=== PATIENT | female | born 1960 | race Caucasian/White ===

== ENCOUNTER 2018-12-18 09:06 | Inpatient (IN) | payer OTHER, MEDICAID ==
[2018-12-18] VITALS (239 sets, daily range): BP systolic 83–145; BP diastolic 57–106; PULSE 71–87; TEMP 98.2–98.8; O2SAT 83–100
[~2018-12-18] VITALS: Ht 162.6 cm; Wt 74.0 kg
[~2018-12-18 09:06] MED LIST: 00186-0372-20 IH; ACIDOPHILUS PO; ALBUTEROL SULFAT3 M3 IH; ALBUTEROL SULFAT8 MG; ASPIRIN 81M81 MG/TA2 PO; BEE POLLEN500 M2 PO; BEPREVE15 MG/ML OU; BUSPAR DIVIDOSE15 MG PO; CLARITIN 1010 MG/TAB PO; COREG 25MG25 MG/TAB PO; COREG12.5 MG PO; COREG25 MG PO; CYMBALTA 60MG60 MG PO; DALIRESP500 MCG PO; DOXYCYCLINE 10100 MG PO; DUO-KAPS1 CAP PO; ESTRATEST HS; FLEXERIL 1010 MG/TAB PO; FLONASE NASAL S16 GM NS; GINSENG PO; GLUCOSAMINE S1000 MG PO; GLUCOSAMINE500 MG PO; IMDUR 30MG30 MG/TAB PO; IRON TABLETS325 MG PO; LEVAQUIN 5500 MG/TA1 PO; LUTEIN20 MG PO; LYRICA50 MG PO; MAGIC MOUTH PO; METHADONE5 MG PO; MG-200200 MG PO; MILK THISTLE1 POW; MUCINEX 60600 MG/TA1 PO; NAPROXEN EC500 MG PO; NEURONTIN100 MG/CAP PO; NEURONTIN300 MG PO; NEURONTIN600 MG/TAB PO; NEXIUM 40MG40 MG PO; NEXIUM40 MG PO; NICODERM C14 MG/PATC TOP; NITROSTAT0.4 MG/TAB SL; NORCO 325 MG-101 TAB; NORCO 325 MG-101 TAB PO; OLIVE LEAF EXT500 MG PO; OMEGA 31000 MG PO; OXYCONTIN30 MG PO; OXYGEN; PLAVIX 75MG TAB75 MG PO; PRAVACHOL 40MG40 MG PO; PREDNISONE10 MG PO; PREDNISONE20 MG PO; PREMARIN 0.60.625 MG PO; PRINIVIL5 MG PO; SINGULAIR 110 MG/TAB PO; SINGULAIR10 MG PO; SPIRIVA RE2.5 MCG/Ac IH; SPIRIVA18 MCG IH; SUPER B COMPLEX1 TA2 PO; SYMBICORT1 AE2 IH; TAGAMET PO; TOPROL XL25 MG PO; TYLENOL #3 301 UDTAB PO; VALIUM 5MG T5 MG/TAB PO; VALIUM5 MG PO; VERAMYST27.5 MCG/A NS; VITAMIN D 400400 IU PO; VITAMIN D1000 IU PO; VITAMIN D50000 IU PO; VITAMIN E1000 U/CAP PO; XOPENEX 1.1.25 MG/3 IH; XOPENEX0.63 MG/3 IH; ZANTAC 150MG T150 MG PO; ZINC10 MG PO; ZOLOFT 50MG50 MG PO; [UNRECOGNIZED DRUG - CODE] PO; [UNRECOGNIZED DRUG - OTHER]; [UNRECOGNIZED DRUG - OTHER] PO; [UNRECOGNIZED DRUG - OTHER] PO; [UNRECOGNIZED DRUG - OTHER] PO
[2018-12-18] MEDS ORDERED: PREDNISONE10 MG PO (09:17)
[2018-12-18] MEDS ORDERED: RT ADVAIR HFA 2312 G IH (09:24)
--- NOTE | 2018-12-18 10:05 | NUR ---
pt to ct per ambulation. Pt placed supine on ct table. Monitors applied and O2 on at 2l/nc.
--- NOTE | 2018-12-18 10:20 | NUR ---
Dr Gonzales into room and talks with pt. regarding procedure. Pt inform she will potentially get a pneumonthorax due to lung conditions.
--- NOTE | 2018-12-18 10:40 | NUR ---
Specimen obtained by Dr Gonzales and placed in formalin. Specimen labeled.
--- NOTE | 2018-12-18 10:45 | NUR ---
Dr Gonzales informs pt she has a pneumothorax.
--- NOTE | 2018-12-18 10:50 | NUR ---
pt reports she is feeling ok slight pain to right side of chest. Pt reports breathing is getting worse.
--- NOTE | 2018-12-18 10:53 | NUR ---
pt gave verbal consent to place chest tube. Verified with [facility] locomotive electrician.
--- NOTE | 2018-12-18 11:02 | NUR ---
pt reports breathing is getting more difficult on right side. O2 sats decreased to 93% O2 increased to 4l/nc. O2 sats increased to 95%
--- NOTE | 2018-12-18 11:07 | NUR ---
Dr Gonzales evacuates are from right lung following chest tube placement. Pt states breathing is getting easier. O2 sats increased to 98% on 4l/nc. scouring pads supervisor notified of needed room. Dr Gonzales to call Dr Arroyo regarding admission.
--- NOTE | 2018-12-18 14:00 | NUR ---
Patient alert and oriented, answers questions appropriately. See assessment. Chest tube in place to right chest wall to dependent drainage. Small amount of bloody drainage noted in pleurex drain. Lungs with normal breath sounds on left, scattered wheezes noted to right upper and lower lung lobes. Oxygen at 4l/nc. No c/o at this time.
[2018-12-18] MEDS ORDERED: ASPIRIN 81M81 MG/TA2 PO (14:17)
--- NOTE | 2018-12-18 16:45 | NUR ---
Patient c/o sudden increase in pressure and swelling to area around chest tube. Wheezes noted RUL, RLL. Area firm, no crepitus noted. Dr Arroyo notified.
--- NOTE | 2018-12-18 17:00 | NUR ---
Dr Gonzales here to see patient, readjusts chest tube. Requests that nurse monitor chest tube so that holes on chest tube are under the skin. Requested from Dr Gonzales if he would like another CXR ordered after adjustment, declined CXR at this time and request CXR in AM.
--- NOTE | 2018-12-18 18:25 | NUR ---
Patient again c/o increased pressure and swelling to right chest, increase in size noted. Continues with wheezes in RLL, RUL. DEVON Castillo notified. CXR ordered. Dr Arroyo here to see patient.
--- NOTE | 2018-12-18 19:58 | NUR ---
Patient arrived to the unit via stretcher. Able to self-transfer to ICU bed. Patient's right side of chest noted to be visibly bulging out compared to left side. Swelling slightly firm to touch. Patient denies any shortness of air; currently on 4L NC.
--- NOTE | 2018-12-18 20:20 | NUR ---
Dr. Almazan at bedside to change Heimlich drain to an atrium drain. Assisted with procedure. Suction not working properly at 20 mmhg; set to [address] Almazan. Tubing checked for any leakage or concerns; suction working properly. Dr. Miller also present; also verifed set was working properly. Will continue to monitor.
[2018-12-18 21:42] LABS: BASO % 0.4 % (0.0-2.0); EOS % 0.1 % (0-4.0); GRAN # 9.2 (1.4-6.5); GRAN % 80.6 % (42.2-75.2); LYMPH # 1.4 (1.2-3.4); LYMPH % 12.3 % (20.0-51.0); MEAN CELL VOLUME 96 fl (80.0-100.0); MEAN CORPUSCULAR HEMOGLOBIN 31 pg (27.0-31.0); MEAN CORPUSCULAR HGB CONC 33 g/dl (33.0-37.0); MEAN PLATELET VOLUME 10.1 fl (7.4-10.4); MONO # 0.7 (0.1-0.6); MONO % 6.1 % (1.7-9.3); PLATELET COUNT 284 K/mm3 (130-400); RED BLOOD COUNT 3.86 M/mm3 (4.10-5.30); REDCELL DISTRIBUTION WIDTH-CV 14.6 % (11.5-14.5)
[2018-12-18 21:45] LABS: INR 1.1 (0.8-3.0); PROTHROMBIN TIME 12.2 SECONDS (9.7-12.8)
[2018-12-18 21:48] LABS: HEMATOCRIT 36.9 % (37.0-47.0)
[2018-12-18 21:55] LABS: ALBUMIN 3.6 gm/dL (3.5-5.0); BILIRUBIN,TOTAL 0.3 mg/dL (0.0-1.0); CALCIUM 9.3 mg/dL (8.4-10.2); CREATININE, serum 0.75 mg/dL (0.52-1.25); MAGNESIUM 1.9 mg/dL (1.6-2.3); POTASSIUM 4.7 mmol/L (3.4-5.0); TOTAL PROTEIN 6.9 gm/dL (6.4-8.2)
--- NOTE | 2018-12-18 23:45 | NUR ---
Crepitus noted around chest tube site. Some tenderness with palpation. Hospitalist notified. No concerns at this time per hospitalist as respiratory status is stable and chest tube functioning.
[2018-12-19] VITALS (813 sets, daily range): BP systolic 113–163; BP diastolic 76–107; PULSE 68–96; TEMP 97.7–98; O2SAT 40–100
--- NOTE | 2018-12-19 01:45 | NUR ---
Chest tube site and drainage system checked; no concerns at this time.
--- NOTE | 2018-12-19 05:00 | NUR ---
Patient denies any concerns at this time. Will continue to monitor.
[2018-12-19 05:39] LABS: BASO % 0.1 % (0.0-2.0); GRAN # 6.7 (1.4-6.5); GRAN % 85.5 % (42.2-75.2); HEMATOCRIT 38.4 % (37.0-47.0); HEMOGLOBIN 12.1 g/dl (12.5-16.0); LYMPH # 0.9 (1.2-3.4); LYMPH % 11.9 % (20.0-51.0); MEAN CELL VOLUME 97 fl (80.0-100.0); MEAN CORPUSCULAR HEMOGLOBIN 31 pg (27.0-31.0); MEAN CORPUSCULAR HGB CONC 32 g/dl (33.0-37.0); MEAN PLATELET VOLUME 9.8 fl (7.4-10.4); MONO # 0.2 (0.1-0.6); PLATELET COUNT 296 K/mm3 (130-400); RED BLOOD COUNT 3.97 M/mm3 (4.10-5.30); REDCELL DISTRIBUTION WIDTH-CV 14.3 % (11.5-14.5)
[2018-12-19 05:49] LABS: CALCIUM 8.8 mg/dL (8.4-10.2); CREATININE, serum 0.57 mg/dL (0.52-1.25); POTASSIUM 4.5 mmol/L (3.4-5.0)
[2018-12-19] MEDS ORDERED: NATURE'S BLEND160 MG (05:49)
--- NOTE | 2018-12-19 07:00 | NUR ---
Bedside report received from DOMITILA Crenshaw. Patient currently sleeping in bed with no complaints. chest tube site evaluated. currently to 30 cm suction. no drainage seen in tubing. will continue to monitor.
--- NOTE | 2018-12-19 11:18 | NUR ---
EZE met with the patient and patient's life partner, Johann, to discuss discharge plan. The patient lives in [place] with her life partner. She reports independence with ADLs, has a walker, and home oxygen through [employer]. The patient's PCP is Dr. Audrey Trivedi and she receives her medications from the [facility]. She reports no difficulties obtaining her meds. The patient does not have advanced directives in EMR, but she states that she does have a copy and that [facility] should have a copy. EZE contacted and requested a copy from [facility]. The patient plans to return home with her life partner upon discharge. No identified needs at this time, but SW to continue to follow.
--- NOTE | 2018-12-19 13:17 | NUR ---
EZE received the patient's DPOA-HC, via fax, from [facility]. EZE placed a copy in the patient's chart and also provided a copy to the patient. The patient then reported that she needed to get a copy of her insurance cards to her oxygen company, [employer], but is unable to do so since she is in the hospital. The patient asked if EZE could send those to [facility]. EZE then contacted and faxed a copy of the patient's insurance cards to Lisa at [facility]. No additional needs at this time.
--- NOTE | 2018-12-19 14:59 | NUR ---
Initial visit; Patient and her and a friend welcomed Data Warehousing Architect visit. Data Warehousing Architect offered encouragement and empathy along with keeping patient in her prayers.
--- NOTE | 2018-12-19 15:15 | NUR ---
Patient taken to Surgical room 350. She is able to ambulate from wheelchair to bed with no issue. Chest tube reviewed with DOMITILA Rascon. Report given to Tarah prior to us coming up to room. Care turned over at this time.
--- NOTE | 2018-12-19 15:15 | NUR ---
PATIENT TRANSFERED FROM ICU INTO ROOM 350. RIGHT CHEST TUBE TO 30 OF CONTINUOUS SUCTION. A&P UPPER LUNG COPELAND NOTED FINE CRACKLES. PATIENT HAS HX OF SMOKING. RIGHT LUNG BASE IS DEMINISHED. NOTED OCCATIONAL EXP WHEEZE. O2 AT 2L PER NC WITH SATS IN MID 90'S. PATIENT DENIES SOB OR CHEST PAIN. CHEST TUBE DRESSING IS CD&I WITH OCCLUSIVE TAPE. HEAD TO TOE ASSESSMENT COMPLETE. AHA DIET. NO COMPLAINTS. LEFT WRIST IV AND RIGHT FORARM IV BOTH TO INT. FAMILY AT BEDSIDE. ORIENTED TO ROOM. CALL LIGHT IN REACH.
--- NOTE | 2018-12-19 20:00 | NUR ---
Patient assisted to bathroom, mild shortness of breath noted with activity. Has a right anterior chest tube to suction, no drainage to record in collection container. Back to bed, oxygen on at 3L/NC. Dressing to rt chest tube secure, has subcutaneous emphysema around chest tube up into right neck, this has been present since arrival to floor. Lungs with expiratory wheezes throughout. Has SL to right and left forearm, both flush easily without redness or swelling. Patient denies pain to chest tube site, has chronic back pain. Is alert and oriented x4.
[2018-12-20 00:55] VITALS: BP 133/93; PULSE 87; TEMP 97.8
[2018-12-20 04:44] VITALS: BP 132/82; PULSE 72; TEMP 98
--- NOTE | 2018-12-20 04:58 | NUR ---
PT REFUSED RT NEBULIZER TX AT THIS TIME.
--- NOTE | 2018-12-20 06:00 | NUR ---
No drainage from chest tube, remains to 20cm suction.
[2018-12-20 07:37] VITALS: BP 145/96; PULSE 73; TEMP 97.1
--- NOTE | 2018-12-20 09:17 | NUR ---
Pt continues to rest in bed. She is A/Ox4. She states she is having 5/10 chronic back pain, requested PRN norco which was given. Saline locks to right FA and left FA are free of complicaitons. Chest tube to suction. to right upper chest is free of complications, small amount of crepitis noted. No drainage noted. Pt denies any other needs.
--- NOTE | 2018-12-20 10:27 | NUR ---
Pt is sitting up in bed, working on computer. Sign. other is at bedside. Pt reports norco was effective, denies any needs.
--- NOTE | 2018-12-20 11:04 | NUR ---
Visited, listened, and prayed with the patient.
[2018-12-20 11:46] VITALS: BP 149/88; PULSE 87; TEMP 97
--- NOTE | 2018-12-20 12:26 | NUR ---
Pt denies pain at this time. States she is going to try and sleep because she did not sleep well last night.
--- NOTE | 2018-12-20 15:16 | NUR ---
Pt is sitting up in bed eating lunch. She continues to deny needs.
[2018-12-20 15:49] VITALS: BP 121/75; PULSE 89; TEMP 98.1
--- NOTE | 2018-12-20 17:05 | NUR ---
Pt has had an overall uneventful shift. Suction remains to 30 cm. No drainage to tube. Pt remains on 3L O2 per NC. She continues to deny any needs. Sign. other at bedside.
[2018-12-20 21:25] VITALS: BP 126/82; PULSE 80; TEMP 97.6
--- NOTE | 2018-12-20 22:05 | NUR ---
pt resting in bed A+Ox4. no pain. SOA on exerition. left lung sounds diminished, right side fine crackles. no needs at this time. call light in reach. shift assessment complete.
--- NOTE | 2018-12-20 23:45 | NUR ---
PT CHEST TUBE HAS NO DDRAINAGE DURING NIGHT. SUCTION AT 30 CM. PT AMBULATING WELL. NO PAIN. SLEEPING, NO NEEDS AT THIS TIME. CALL LIGHT IN REACH.
[2018-12-21 00:44] VITALS: BP 137/90; PULSE 72; TEMP 97.8
--- NOTE | 2018-12-21 04:39 | NUR ---
pt chest tube stopped producing bubbles- charge and house notified. will continue to monitor. pt denies needs at this time
[2018-12-21 05:08] VITALS: BP 129/81; PULSE 72; TEMP 97.7
--- NOTE | 2018-12-21 05:29 | NUR ---
PT WANTED TO SLEEP NOT RT TX GIVEN AT THIS TIME.
--- NOTE | 2018-12-21 06:10 | NUR ---
pt had an uneventful night. no pain- slight tenderness at chest tube site. chest tube- bubbles stopped, charge and house notified. ICU nurse came and applied tubing directly to suction. bubbles noted currently. no soa. no needs at this time. call light in reach.
[2018-12-21 06:16] LABS: BASO % 0.1 % (0.0-2.0); GRAN % 83.5 % (42.2-75.2); HEMATOCRIT 38.2 % (37.0-47.0); HEMOGLOBIN 12.4 g/dl (12.5-16.0); LYMPH # 1.1 (1.2-3.4); LYMPH % 11.6 % (20.0-51.0); MEAN CELL VOLUME 95 fl (80.0-100.0); MEAN CORPUSCULAR HEMOGLOBIN 31 pg (27.0-31.0); MEAN CORPUSCULAR HGB CONC 33 g/dl (33.0-37.0); MONO # 0.4 (0.1-0.6); MONO % 4.4 % (1.7-9.3); PLATELET COUNT 294 K/mm3 (130-400); RED BLOOD COUNT 4.02 M/mm3 (4.10-5.30); REDCELL DISTRIBUTION WIDTH-CV 14.4 % (11.5-14.5)
[2018-12-21 06:27] LABS: ALBUMIN 3.3 gm/dL (3.5-5.0); BILIRUBIN,TOTAL 0.3 mg/dL (0.0-1.0); CALCIUM 9.1 mg/dL (8.4-10.2); CREATININE, serum 0.64 mg/dL (0.52-1.25); POTASSIUM 4.5 mmol/L (3.4-5.0); TOTAL PROTEIN 6.4 gm/dL (6.4-8.2)
--- NOTE | 2018-12-21 07:18 | NUR ---
report given to DOMITILA Gomez. pt reports no needs
[2018-12-21 07:51] VITALS: BP 142/92; PULSE 75; TEMP 97.6
--- NOTE | 2018-12-21 08:00 | NUR ---
Patient is resting comfortably. Her chest tube is to 30cm of suction as ordered. She has redness and crepitus at her insertion site. She stated it is a little tender. Oxygen on at 3l/min per NC. Denies nausea at this time. Stated having some pain but is not bad at this time. She is wanting to rest at this time because she was not able to sleep much last night. No other changes at this time. Call light within reach.
[2018-12-21 11:55] VITALS: BP 140/91; PULSE 73; TEMP 97.5
[2018-12-21 16:04] VITALS: BP 127/77; PULSE 89; TEMP 97.8
--- NOTE | 2018-12-21 18:00 | NUR ---
Patient has been doing well today. Timpson given once this am for pain and she has not wanted any since. New IV started this afternoon, her previou IV's were outdated. No drainage from chest tube. Dr Kolb turned the suction down to 20cm. Patient continues to be on 3l/O2 per NC. No other changes at this time. Call light within reach.
[2018-12-21 20:53] VITALS: BP 121/87; PULSE 89; TEMP 97.6
[2018-12-22 04:43] VITALS: BP 117/80; PULSE 74; TEMP 97
--- NOTE | 2018-12-22 06:23 | NUR ---
RESTING QUIETLY. NO N/V. NO DYSPNEA AT REST. NORCO FOR PAIN. CHEST TUBE TO RT CHEST WITHOUT LEAKAGE. NOTABLE BILAT. EXP. WHEEZE.
[2018-12-22 06:34] LABS: BASO % 0.1 % (0.0-2.0); GRAN # 7.6 (1.4-6.5); GRAN % 74.3 % (42.2-75.2); HEMATOCRIT 42.1 % (37.0-47.0); HEMOGLOBIN 13.5 g/dl (12.5-16.0); LYMPH # 1.5 (1.2-3.4); LYMPH % 14.3 % (20.0-51.0); MEAN CELL VOLUME 94 fl (80.0-100.0); MEAN CORPUSCULAR HEMOGLOBIN 30 pg (27.0-31.0); MEAN CORPUSCULAR HGB CONC 32 g/dl (33.0-37.0); MEAN PLATELET VOLUME 9.8 fl (7.4-10.4); MONO # 1.1 (0.1-0.6); MONO % 10.4 % (1.7-9.3); PLATELET COUNT 310 K/mm3 (130-400); RED BLOOD COUNT 4.46 M/mm3 (4.10-5.30); REDCELL DISTRIBUTION WIDTH-CV 14.3 % (11.5-14.5)
[2018-12-22 06:45] LABS: CALCIUM 9.3 mg/dL (8.4-10.2); CREATININE, serum 0.72 mg/dL (0.52-1.25); POTASSIUM 4.5 mmol/L (3.4-5.0)
[2018-12-22 08:40] VITALS: BP 127/90; PULSE 85; TEMP 97.7
--- NOTE | 2018-12-22 10:30 | NUR ---
Patient alert and oriented, answers questions appropriately. See assessment. Chest tube to right upper chest to suction, dressing CDI. No c/o SOA. Scattered wheezes noted throughout all lung mendez. No other c/o at this time.
--- NOTE | 2018-12-22 11:18 | NUR ---
Dr Yoo here to see patient. Chest tube to water seal.
--- NOTE | 2018-12-22 11:24 | NUR ---
Follow-up visit; Lara hopeful about being discharged today. Senior Research Project Manager wished her well and God's blessings.
[2018-12-22 12:06] VITALS: BP 127/83; PULSE 77; TEMP 97.3
[2018-12-22 17:12] VITALS: BP 114/86; PULSE 96; TEMP 97.9
[2018-12-22 20:00] VITALS: BP 118/84; PULSE 92; TEMP 98.1
--- NOTE | 2018-12-22 22:00 | NUR ---
Assessment complete see flow sheet. Denies any questions or concerns at this time. HS meds given. States she has no pain but feels exhausted. Plan of care discussed for shift and possible discharge in AM. Verbalizes understanding and denies questions or concerns. Will continue to monitor.
[2018-12-23 00:41] VITALS: BP 102/72; PULSE 94; TEMP 97.1
--- NOTE | 2018-12-23 02:20 | NUR ---
PT REFUSED TX AT THIS TIME, SHE WOULD LIKE TO SLEEP.
[2018-12-23 04:25] VITALS: BP 125/90; PULSE 91; TEMP 97.4
--- NOTE | 2018-12-23 05:00 | NUR ---
Rested most of the night with no c/o. Denied any need for pain medications. Encouraged to call for questions or concerns. Will continue to monitor.
[2018-12-23 07:57] VITALS: BP 100/78; PULSE 92; TEMP 98
[2018-12-23] MEDS ORDERED: PREDNISONE10 MG PO (09:28)
[2018-12-23 11:19] VITALS: BP 97/59; PULSE 81; TEMP 97.6
--- NOTE | 2018-12-23 12:05 | NUR ---
SW attended clinical rounding. Patient will dc home today. Nurse reports she is independent in room. No discharge needs identified.
--- NOTE | 2018-12-23 13:29 | NUR ---
PATIENT DISCHARGING HOME VIA WHEELCHAIR TO PERSONAL VEHICLE WITH . GAVE DISCHARGE INSTRUCTIONS AND FOLLOW UP APTS. ANSWERED ALL QUESTIONS/CONERNS. STUDENT NURSE DC'D IV. PATIENT DISCHARGED WITH PERSONAL BELONGINGS.
== END 2018-12-23 13:30 | disposition home or self-care (01) | DRG 201 ==
LOC: COL.RAD 09:06 → SURG 12:00 → ICU 20:00 → SURG 12-19 15:11 → ICU 12-19 15:11 → SURG 12-19 15:11
PROVIDERS: Family Medicine; Internal Medicine; ADMIT Internal Medicine Pulmonary Disease
PROC: 0BBD3ZX Excision of Right Middle Lung Lobe, Percutaneous Approach, Diagnostic (ICD-10-PCS; principal; 2018-12-18)
PROC: 0W9930Z Drainage of Right Pleural Cavity with Drainage Device, Percutaneous Approach (ICD-10-PCS; 2018-12-18)
DX: J95.811 Postprocedural pneumothorax (principal); R91.8 Other nonspecific abnormal finding of lung field; I10 Essential (primary) hypertension; J44.9 Chronic obstructive pulmonary disease, unspecified; I25.10 Atherosclerotic heart disease of native coronary artery without angina pectoris; F17.210 Nicotine dependence, cigarettes, uncomplicated; Z95.1 Presence of aortocoronary bypass graft; Z86.73 Personal history of transient ischemic attack (TIA), and cerebral infarction without residual deficits; Z79.01 Long term (current) use of anticoagulants; J01.90 Acute sinusitis, unspecified; G89.21 Chronic pain due to trauma; T81.82XA Emphysema (subcutaneous) resulting from a procedure, initial encounter; I95.9 Hypotension, unspecified; G47.34 Idiopathic sleep related nonobstructive alveolar hypoventilation
CPT/HCPCS: 99233-AI; 99239; A7048; J1650; J2250; J2920; J7030; J7120; J7512

== ENCOUNTER → 2019-04-23 | Outpatient (CLI) | payer OTHER, MEDICAID ==
[~2019-04-23] MED LIST changes: +NATURE'S BLEND160 MG; +RT ADVAIR HFA 2312 G IH
== END ==
LOC: COL.RAD 08:08
DX: C34.2 Malignant neoplasm of middle lobe, bronchus or lung (principal)
CPT/HCPCS: A9585

== ENCOUNTER → 2019-05-08 | Outpatient (CLI) | payer OTHER, MEDICAID | LOC: COL.RAD 08:03 | DX: M51.36 Other intervertebral disc degeneration, lumbar region (principal); M48.02 Spinal stenosis, cervical region; M43.22 Fusion of spine, cervical region; M47.813 Spondylosis without myelopathy or radiculopathy, cervicothoracic region; M48.07 Spinal stenosis, lumbosacral region; M43.16 Spondylolisthesis, lumbar region | CPT/HCPCS: A9585 ==

== ENCOUNTER 2019-07-26 17:30 | Inpatient (IN) | payer OTHER, MEDICAID ==
[~2019-07-26] VITALS: Ht 152.4 cm; Wt 77.4 kg
[2019-07-26] MEDS ORDERED: PROTONIX 40MG T40 MG PO (18:21)
[2019-07-26 18:29] LABS: HEMOGLOBIN 11.3 g/dl (12.5-16.0); MEAN CELL VOLUME 99 fl (80.0-100.0); MEAN CORPUSCULAR HEMOGLOBIN 32 pg (27.0-31.0); MEAN CORPUSCULAR HGB CONC 33 g/dl (33.0-37.0); MEAN PLATELET VOLUME 9.4 fl (7.4-10.4); PLATELET COUNT 238 K/mm3 (130-400); RED BLOOD COUNT 3.52 M/mm3 (4.10-5.30); REDCELL DISTRIBUTION WIDTH-CV 19.9 % (11.5-14.5)
[2019-07-26 18:33] LABS: HEMATOCRIT 34.7 % (37.0-47.0)
[2019-07-26 18:35] LABS: ALBUMIN 4.3 gm/dL (3.5-5.0); BILIRUBIN,TOTAL 0.5 mg/dL (0.0-1.0); CALCIUM 9.1 mg/dL (8.4-10.2); CREATININE, serum 0.7 (0.52-1.25); POTASSIUM 4.4 mmol/L (3.4-5.0); TOTAL PROTEIN 7.5 gm/dL (6.4-8.2)
[2019-07-26 19:43] LABS: COLLECTION METHOD CLEAN CATCH
[2019-07-26 20:12] LABS: MUCOUS Present /lpf; PH 6 (5-8); SQUAMOUS EPITHELIAL 0-2 /hpf; URINE APPEARANCE Clear; URINE BACTERIA None Seen /hpf; URINE BILIRUBIN Negative (NEGATIVE); URINE BLOOD 1+ (NEGATIVE); URINE COLOR Yellow; URINE GLUCOSE Negative (NEGATIVE); URINE KETONE Negative (NEGATIVE); URINE LEUKOCYTE ESTERASE Negative (NEGATIVE); URINE NITRATE Negative (NEGATIVE); URINE PROTEIN(semi-quant) Negative (NEGATIVE); URINE RBC 20-50 /hpf; URINE UROBILINOGEN >=4.0 mg/dL (NEGATIVE)
[2019-07-26 20:19] LABS: ANISOCYTOSIS 2+; BAND 3 % (0-10); BASOPHIL 1 % (0-2); EOSINOPHIL 2 % (0-4); LYMPHOCYTE 28 % (20.0-51.0); METAMYELOCYTE 2 % (0-0); MYELOCYTE 1 % (0-0); NEUTROPHILS 58 % (42.0-75.2); PLATELET ESTIMATE NORMAL (NORMAL)
[2019-07-26 20:21] LABS: TOXIC GRANULATION PRESENT
--- NOTE | 2019-07-26 20:50 | NUR ---
Pt arrived to room 317, transferred per stretcher by ED staff. Pt awake, a&o, cooperative c cares. Denies pain or other c/o at this time, states "I feel better than when I came in". INT patent. Pt oriented to room, unit policies et current POC. Questions invited et answered, pt verbalizes understanding. Pt denies further needs. Call light in reach, will continue c admit process.
[2019-07-26 21:06] VITALS: BP 112/72; PULSE 101; TEMP 97.7
[2019-07-26] MEDS ORDERED: NEURONTIN300 MG/CAP PO (21:57)
[2019-07-26] MEDS ORDERED: PEPCID 20MG TAB20 MG PO (21:58)
[2019-07-26] MEDS ORDERED: COMPAZINE 110 MG/TAB PO (22:01)
[2019-07-26] MEDS ORDERED: COREG 3.123.125 MG/T PO (22:02)
[2019-07-26] MEDS ORDERED: NATURE'S BLEND160 MG PO (22:04)
[2019-07-27] VITALS (7 sets, daily range): BP systolic 90–149; BP diastolic 54–94; PULSE 82–119; TEMP 98.1–98.9
[2019-07-27 06:20] LABS: MEAN CELL VOLUME 101 fl (80.0-100.0); MEAN CORPUSCULAR HGB CONC 32 g/dl (33.0-37.0); MEAN PLATELET VOLUME 9.2 fl (7.4-10.4); PLATELET COUNT 162 K/mm3 (130-400); RED BLOOD COUNT 2.91 M/mm3 (4.10-5.30)
[2019-07-27 06:23] LABS: HEMATOCRIT 29.4 % (37.0-47.0); HEMOGLOBIN 9.4 g/dl (12.5-16.0); MEAN CORPUSCULAR HEMOGLOBIN 32 pg (27.0-31.0)
[2019-07-27 06:32] LABS: CALCIUM 8.1 mg/dL (8.4-10.2); CREATININE, serum 0.61 (0.52-1.25); POTASSIUM 4.2 mmol/L (3.4-5.0)
--- NOTE | 2019-07-27 06:38 | NUR ---
Vancomycin Initial Dosing Pharmacy Note Ordering provider: Randy Vazquez B.MD Indication/duration: pneumonia Relevant comorbidities: LABS: CREA=0.7 est Crcl of 79 ML/MIN Recommendation: 1 g IV q8hr, check trough on 07/29, follow daily labs Maintenance dose: 1 g IV q 8hr Trough goal: 15-20
[2019-07-27 07:02] LABS: TSH w REFLEX 0.28 uIU/mL (0.465-4.680)
[2019-07-27 08:31] LABS: PATHOLOGY DIFF REVIEW OK
--- NOTE | 2019-07-27 10:03 | NUR ---
Pt is awake and A/Ox4, sitting up in bed. She denies pain or discomfort. IVF are infusing into left AC without complications. Pt is up as tolerated in room. She wears 2L O2 per NC at night. Exp. wheeze noted. Pt denies any other needs at this time.
--- NOTE | 2019-07-27 11:03 | NUR ---
Initial visit; Patient thanked Supervisor Paper Machine for looking in on her and offering God's blessings and keeping her in Supervisor Paper Machine's prayers.
--- NOTE | 2019-07-27 13:35 | NUR ---
EZE met with the patient to discuss discharge plan. The patient lives in [place]. She states that her boyfriend, Johann Bourgeois (ph#[phone]), stays with her. She reports independence with ADLs and has a cane, walker, and nocturnal oxygen from [facility]. The patient's PCP is Dr. Cleo Lombardo and she receives her medications from [facility]. She reports no difficulties obtaining her meds. The patient's advanced directives are in EMR and up-to-date. The patient's DPOA-HC is Johann and the alternate is her daughter Claudia Stephen. The patient plans to return home with Johann upon discharge. No other identified needs at this time.
--- NOTE | 2019-07-27 17:56 | NUR ---
Pt has had an uneventful shift. She remained on 2L O2 per NC throughout shift. Pt is up as tolerated in room. Denies any other needs.
--- NOTE | 2019-07-27 20:20 | NUR ---
Shift assessment complete. Pt resting in bed, awake, a&o, cooperative c cares. Pt reports chronic pain to hips et back, will give PRN pain med c HS meds per pt req. Pt denies any other c/o. IV patent. Tele in place. O2 per NC. Pt denies further needs at this time. Call light in reach, will continue to monitor.
[2019-07-28 02:11] LABS: CREATINE KINASE < 20 U/L (30-135)
[2019-07-28 02:23] LABS: TROPONIN-I < 0.012 ng/mL (0.000-0.035)
[2019-07-28 04:41] VITALS: BP 127/83; PULSE 113; TEMP 98
[2019-07-28 06:14] LABS: MEAN CELL VOLUME 99 fl (80.0-100.0); MEAN CORPUSCULAR HGB CONC 33 g/dl (33.0-37.0); MEAN PLATELET VOLUME 9.5 fl (7.4-10.4); PLATELET COUNT 136 K/mm3 (130-400); RED BLOOD COUNT 2.83 M/mm3 (4.10-5.30)
[2019-07-28 06:16] LABS: HEMOGLOBIN 9.2 g/dl (12.5-16.0); MEAN CORPUSCULAR HEMOGLOBIN 33 pg (27.0-31.0)
[2019-07-28 06:37] LABS: CALCIUM 8.7 mg/dL (8.4-10.2); CREATININE, serum 0.48 (0.52-1.25)
[2019-07-28 07:19] VITALS: BP 121/87; PULSE 101; TEMP 98.4
[2019-07-28 07:34] LABS: BAND 3 % (0-10); HYPOCHROMIA 2+; LYMPHOCYTE 22 % (20.0-51.0); METAMYELOCYTE 1 % (0-0); NEUTROPHILS 58 % (42.0-75.2)
[2019-07-28 07:35] LABS: ANISOCYTOSIS 2+; PLATELET ESTIMATE NORMAL (NORMAL)
--- NOTE | 2019-07-28 10:46 | NUR ---
Assessment completed, alert/oriented, vital signs stable/ heart regular but still slighty tachycardic/ I have discussed this with , she denies pain or discomfort, feels her breathing is easier and overall feels much better, some coarse bases and some exp wheezing noted on lung sound assessment, IV cefepime given, she reports she would really like to be discharged home today, denies other needs at this time
[2019-07-28 11:45] VITALS: BP 103/79; PULSE 94; TEMP 97.5
[2019-07-28] MEDS ORDERED: OMNICEF 300MG300 MG PO (15:44)
--- NOTE | 2019-07-28 16:21 | NUR ---
Discahrge orders discussed with the patient, instructed to follow up with as we have scheduled, instructed to have repeat CXR in 2-4 weeks, instructed to wear home o2 continuously untill f/u with PCP, instructed to keep daily log of blood pressure and to HOLD lisinopril untill PCP follow up, IV and tele removed, she is leaving with family/friend, PROGRAMMER ENGINEERING AND SCIENTIFIC will escort her out the door
== END 2019-07-28 16:24 | disposition home or self-care (01) | DRG 194 ==
LOC: COL.ER 17:30 → MEDICAL 19:54
PROVIDERS: Emergency Medicine; Physician Assistant; ADMIT Student in an Organized Health Care Education/Training Program
DX: J18.1 Lobar pneumonia, unspecified organism (principal); C34.90 Malignant neoplasm of unspecified part of unspecified bronchus or lung; E87.1 Hypo-osmolality and hyponatremia; F32.9 Major depressive disorder, single episode, unspecified; I10 Essential (primary) hypertension; I25.10 Atherosclerotic heart disease of native coronary artery without angina pectoris; E11.9 Type 2 diabetes mellitus without complications; J44.9 Chronic obstructive pulmonary disease, unspecified; F17.210 Nicotine dependence, cigarettes, uncomplicated; Z95.1 Presence of aortocoronary bypass graft; Z90.710 Acquired absence of both cervix and uterus; Z99.81 Dependence on supplemental oxygen; I25.2 Old myocardial infarction; Z88.1 Allergy status to other antibiotic agents; Z91.041 Radiographic dye allergy status; Z88.5 Allergy status to narcotic agent; Z88.8 Allergy status to other drugs, medicaments and biological substances; Z91.048 Other nonmedicinal substance allergy status; Z86.73 Personal history of transient ischemic attack (TIA), and cerebral infarction without residual deficits
CPT/HCPCS: 99232-AI; 99239; A4216; J0692; J0696; J1650; J2405; J2543; J3370; J7030; J7050

== ENCOUNTER → 2020-07-25 | Outpatient (CLI) | payer OTHER, MEDICAID ==
[~2020-07-25] MED LIST changes: +COMPAZINE 110 MG/TAB PO; +COREG 3.123.125 MG/T PO; +NATURE'S BLEND160 MG PO; +NEURONTIN300 MG/CAP PO; +OMNICEF 300MG300 MG PO; +PEPCID 20MG TAB20 MG PO; +PROTONIX 40MG T40 MG PO
== END ==
LOC: COL.RAD 07-19 12:30
DX: E23.6 Other disorders of pituitary gland (principal)
CPT/HCPCS: A9585

== ENCOUNTER → 2021-04-10 | Outpatient (CLI) | payer OTHER, MEDICAID | LOC: COL.RAD 02-23 07:30 | DX: M41.86 Other forms of scoliosis, lumbar region (principal); M47.816 Spondylosis without myelopathy or radiculopathy, lumbar region; M48.061 Spinal stenosis, lumbar region without neurogenic claudication; M43.16 Spondylolisthesis, lumbar region; M51.26 Other intervertebral disc displacement, lumbar region; Z98.890 Other specified postprocedural states | CPT/HCPCS: A9585 ==

== ENCOUNTER → 2022-07-09 | Outpatient (CLI) | payer OTHER, MEDICAID | LOC: COL.RAD 06-21 07:30 | DX: M48.061 Spinal stenosis, lumbar region without neurogenic claudication (principal); M48.07 Spinal stenosis, lumbosacral region; M41.86 Other forms of scoliosis, lumbar region; M53.82 Other specified dorsopathies, cervical region; Z98.1 Arthrodesis status | CPT/HCPCS: A9575 ==